=== PATIENT | male | born 1975 | race Caucasian/White ===

== ENCOUNTER 2022-12-14 18:57 | Emergency (ER) | payer OTHER | END 2022-12-14 20:08 | disposition home or self-care (01) | LOC: MW.ED 18:57 | DX: Z76.0 Encounter for issue of repeat prescription; E78.00 Pure hypercholesterolemia, unspecified; I10 Essential (primary) hypertension; Z88.1 Allergy status to other antibiotic agents; Z79.899 Other long term (current) drug therapy | CPT/HCPCS: 99282; 99283 ==